=== PATIENT | male | born 1965 | race Hispanic/Latino ===

== ENCOUNTER → 2017-05-04 | Outpatient (CLI) | payer OTHER ==
--- NOTE | 2017-05-05 09:40 | US ---
EXAM DESCRIPTION: Soft Tissue,Extremity CLINICAL HISTORY: 51 years Male, GANGLION CYST M67.40 COMPARISON: None. TECHNIQUE: Sonogram of the palpable area of concern lateral left wrist was performed FINDINGS: Cystic structure is seen in the palpable area of concern which measures 1.3 x 0.6 x 1.3 cm. Findings are consistent with paraarticular ganglion. IMPRESSION: Sono findings consistent with paraarticular ganglion cyst of the lateral left wrist. Electronically signed by: Lamonte Chery MD 05/05/2017 9:38 AM CDT
== END ==
LOC: US 09:47
PROVIDERS: ATTEND Family Medicine
DX: M67.40 Ganglion, unspecified site (principal)